=== PATIENT | female | born 1990 | race Caucasian/White ===

== ENCOUNTER 2024-01-19 17:54 | Emergency (ER) | payer BC ==
--- NOTE | 2024-01-19 18:11 | ED ---
Female Urogenital HPI - General Chief complaint: Vaginal Bleeding Stated complaint: 12wks preg/heavy vaginal bleeding Time Seen by Provider: 01/19/24 18:01 Source: patient Mode of arrival: ambulatory Limitations: no limitations - History of Present Illness Initial comments: 32-year-old female currently 12 weeks G2, with history of hypertension presenting with chief complaint of vaginal bleeding. States that this afternoon she noticed some sudden onset heavy vaginal bleeding. She was also having some cramping. They came her to the hospital. She reports now that the cramping has resolved but she feels she is still bleeding. No flank pain. No fever. Patient does report that she was seen at a previous [facility] office, states that she had a bad experience there and has an appointment scheduled with [facility] in February. She did have a previous ultrasound done at this other [facility] office. - Related Data Allergies Allergy/AdvReac Type Severity Reaction Status Date / Time No Known Allergies Allergy Verified 01/19/24 18:01 Review of Systems ROS Statement: Those systems with pertinent positive or pertinent negative responses have been documented in the HPI. ROS Other: All systems not noted in ROS Statement are negative. Past Medical History Past Medical History: Hypertension History of Any Multi-Drug Resistant Organisms: None Reported Past Surgical History: Uterine Ablation Past Psychological History: No Psychological Hx Reported Smoking Status: Never smoker Past Alcohol Use History: None Reported Past Drug Use History: None Reported General Exam Limitations: no limitations General appearance: alert, in no apparent distress Head exam: Present: atraumatic, normocephalic, normal inspection Eye exam: Present: normal appearance, EOMI Neck exam: Present: normal inspection. Absent: meningismus Respiratory exam: Absent: respiratory distress Cardiovascular Exam: Present: tachycardia GI/Abdominal exam: Present: soft. Absent: distended, tenderness, guarding, rebound, rigid External exam: Present: normal external exam Speculum exam: Present: vaginal bleeding (scant) Neurological exam: Present: alert, oriented X3 Psychiatric exam: Present: anxious Skin exam: Present: warm, dry Course Vital Signs 01/19/24 01/19/24 01/19/24 17:56 19:04 21:00 Temperature 98.5 F Pulse Rate 110 H 122 H 96 Respiratory 18 18 18 Rate Blood Pressure 171/119 179/111 149/100 O2 Sat by Pulse 99 99 98 Oximetry 01/19/24 22:29 Temperature 98.0 F Pulse Rate 92 Respiratory 16 Rate Blood Pressure 147/97 O2 Sat by Pulse 98 Oximetry Medical Decision Making - Medical Decision Making Was pt. sent in by a medical professional or institution ([facility]ley, EXHIBITIONS CURATOR, urgent care, hospital, or [facility]...) When possible be specific @ -No Did you speak to anyone other than the patient for history (EMS, parent, family, police, friend...)? What history was obtained from this source @ -No Did you review nursing and triage notes (agree or disagree)? Why? @ -I reviewed and agree with nursing and triage notes Were old charts reviewed (outside hosp., previous admission, EMS record, old EKG, old radiological studies, urgent care reports/EKG's, [facility] records)? Report findings @ -No old charts were reviewed Differential Diagnosis (chest pain, altered mental status, abdominal pain women, abdominal pain men, vaginal bleeding, weakness, fever, dyspnea, syncope, headache, dizziness, GI bleed, back pain, seizure, CVA, palpatations, mental health, musculoskeletal)? @ -MDM Differential Vaginal Bleeding: Spontaneous , threatened , molar , ectopic , bloody show, incompetent cervix, abruptioplacenta, placenta previa, uterine rupture, dysfunctional uterine bleeding, hemorrhage, uterine fibr oids. ... This is not meant to be an all-inclusive list EKG interpreted by me (3pts min.). @ -As above X-rays interpreted by me (1pt min.). @ -None done CT interpreted by me (1pt min.). @ -None done U/S interpreted by me (1pt. min.). @ -Ultrasound shows single intrauterine gestation estimated 8 weeks 6 days gestation based on current ultrasound measurements. Cardiac activity measures 172 bpm. Large thickened uterus. Consider fibroid or gestational trophoblastic disease What testing was considered but not performed or refused? (CT, X-rays, U/S, labs)? Why? @ -None What meds were considered but not given or refused? Why? @ -None Did you discuss the management of the patient with other professionals (professionals i.e. JO[facility] ANTONIO Manley, EXHIBITIONS CURATOR, lab, RT, psych nurse, social service director, certified anesthesiologist assistant, teacher, earth science technical officer, family independence case manager)? Give summary @ -I spoke with Dr. Goodman regarding the patient's ultrasound findings. Given that the patient has a live IUP she cannot also have gestational troph oblastic disease. Patient will follow-up with him at her upcoming appointment at the beginning of February, will report back to ER with any new or worsening symptoms Was smoking cessation discussed for >3mins.? @ -No Was critical care preformed (if so, how long)? @ -No Were there social determinants of health that impacted care today? How? (Homelessness, low income, unemployed, alcoholism, drug addiction, transportation, low edu. Level, literacy, decrease access to med. care, mcc, rehab)? @ -No Was there de-escalation of care discussed even if they declined (Discuss DNR or withdrawal of care, Hospice)? DNR status @ -No What co-morbidities impacted this encounter? (DM, HTN, Smoking, COPD, CAD, Cancer, CVA, ARF, Chemo, Hep., AIDS, mental health diagnosis, sleep apnea, morbid obesity)? @ -None Was patient admitted / discharged? Hospital course, mention meds given and route, prescriptions, significant lab abnormalities, going to OR and other pertinent info. @ -33-year-old female currently about 11 weeks presenting with chief complaint of vaginal bleeding and cramping that started earlier today. Patient is hypertensive, history of hypertension, not currently on her metoprolol as it was making her feel sick. WBC 12.3, may be reactive secondary to . Patient O+, no need for RhoGAM. Ultrasound shows single live IUP. There is also a large thickened uterus. hCG 71,959.8. Discussed with [facility] on-call Dr. Goodman, gestational trophoblastic disease not compatible with her ultrasound findings of a live IUP. Patient will follow-up with him at her appointment scheduled for early February. Patient was given labetalol for her blood pressure, BP improved to 147/97. No headache blurry vision or upper abdominal pain. Patient is educated on today's findings and treatment plan. Follow-up with [facility]. Follow-up with PCP. Report back to ER with any new or worsening symptoms. Discussed return parameters and answered all questions. Patient conveyed verbal understanding and agreed to the plan. I discussed this case in detail with my attending Dr. Kumar Undiagnosed new problem with uncertain prognosis? @ -No Drug Therapy requiring intensive monitoring for toxicity (Heparin, Nitro, Insulin, Cardizem)? @ -No Were any procedures done? @ -No Diagnosis/symptom? @ -Threatened Acute, or Chronic, or Acute on Chronic? @ -Acute Uncomplicated (without systemic symptoms) or Complicated (systemic symptoms)? @ -Uncomplicated Side effects of treatment? @ -No Exacerbation, Progression, or Severe Exacerbation? @ -No Poses a threat to life or bodily function? How? (Chest pain, [place], [place], pneumonia, PE, COPD, DKA, ARF, appy, cholecystitis, CVA, Diverticulitis, Homicidal, Suicidal, threat to staff... and all critical care pts) @ -No immediate threat at this time - Lab Data Result diagrams: 01/19/24 19:24 01/19/24 19:24 Lab Results 01/19/24 01/19/24 01/19/24 Range/Units 19:12 19:24 19:24 WBC 12.3 H (3.8-10.6) k/uL RBC 4.80 (3.80-5.40) m/uL Hgb 13.9 (11.4-16.0) gm/dL Hct 40.9 (34.0-46.0) % MCV 85.2 (80.0-100.0) fL MCH 28.9 (25.0-35.0) pg MCHC 33.9 (31.0-37.0) g/dL RDW 13.3 (11.5-15.5) % Plt Count 297 (150-450) k/uL MPV 7.5 Neutrophils % 71 % Lymphocytes % 22 % Monocytes % 5 % Eosinophils % 1 % Basophils % 1 % Neutrophils # 8.7 H (1.3-7.7) k/uL Lymphocytes # 2.7 (1.0-4.8) k/uL Monocytes # 0.6 (0-1.0) k/uL Eosinophils # 0.1 (0-0.7) k/uL Basophils # 0.1 (0-0.2) k/uL PT 10.1 (10.0-12.5) sec INR 0.9 (<1.2) APTT 24.1 (22.0-30.0) sec Sodium (137-145) mmol/L Potassium (3.5-5.1) mmol/L Chloride (98-107) mmol/L Carbon Dioxide (22-30) mmol/L Anion Gap mmol/L BUN (7-17) mg/dL Creatinine (0.52-1.04) mg/dL Est GFR (CKD-EPI)AfAm (>60 ml/min/1.73 sqM) Est GFR (CKD-EPI)NonAf (>60 ml/min/1.73 sqM) Glucose (74-99) mg/dL Calcium (8.4-10.2) mg/dL Total Bilirubin (0.2-1.3) mg/dL AST (14-36) U/L ALT (4-34) U/L Alkaline Phosphatase (38-126) U/L Total Protein (6.3-8.2) g/dL Albumin (3.5-5.0) g/dL HCG, Quant mIU/mL Blood Type O Positive Blood Type Recheck No Previous Record Bld Type Recheck Status [facility] ONLY 01/19/24 Range/Units 19:24 WBC (3.8-10.6) k/uL RBC (3.80-5.40) m/uL Hgb (11.4-16.0) gm/dL Hct (34.0-46.0) % MCV (80.0-100.0) fL MCH (25.0-35.0) pg MCHC (31.0-37.0) g/dL RDW (11.5-15.5) % Plt Count (150-450) k/uL MPV Neutrophils % % Lymphocytes % % Monocytes % % Eosinophils % % Basophils % % Neutrophils # (1.3-7.7) k/uL Lymphocytes # (1.0-4.8) k/uL Monocytes # (0-1.0) k/uL Eosinophils # (0-0.7) k/uL Basophils # (0-0.2) k/uL PT (10.0-12.5) sec INR (<1.2) APTT (22.0-30.0) sec Sodium 135 L (137-145) mmol/L Potassium 4.1 (3.5-5.1) mmol/L Chloride 108 H (98-107) mmol/L Carbon Dioxide 16 L (22-30) mmol/L Anion Gap 11 mmol/L BUN 13 (7-17) mg/dL Creatinine 0.63 (0.52-1.04) mg/dL Est GFR (CKD-EPI)AfAm >90 (>60 ml/min/1.73 sqM) Est GFR (CKD-EPI)NonAf >90 (>60 ml/min/1.73 sqM) Glucose 96 (74-99) mg/dL Calcium 9.4 (8.4-10.2) mg/dL Total Bilirubin 0.5 (0.2-1.3) mg/dL AST 23 (14-36) U/L ALT 23 (4-34) U/L Alkaline Phosphatase 70 (38-126) U/L Total Protein 7.3 (6.3-8.2) g/dL Albumin 4.6 (3.5-5.0) g/dL HCG, Quant 42738.8 mIU/mL Blood Type Blood Type Recheck Bld Type Recheck Status Disposition Clinical Impression: Threatened Disposition: HOME SELF-CARE Condition: Good Instructions (If sedation given, give patient instructions): Threatened Miscarriage (ED) Additional Instructions: Follow-up with your [facility]. Report back to ER with any new or worsening symptoms, including but not limited to worsening bleeding or pain. Is patient prescribed a controlled substance at d/c from ED?: No Referrals: None,Stated [Primary Care Provider] - 1-2 days Kishan Goodman MD [STAFF PHYSICIAN] - 1-2 days Time of Disposition: 22:18
[2024-01-19] MEDS: SODIUM CHLORIDE 0.9% 1,000 ML IV ONE (19:15)
--- NOTE | 2024-01-19 19:30 | US ---
EXAMINATION TYPE: Transabdominal DATE OF EXAM: 01/19/2024 7:08 PM COMPARISON: NONE CLINICAL INDICATION: Female, 33 years old with history of pain; bleed x 1 hr, scanned on 01/01 at of fice measuring "8-9 weeks" per pt. TECHNIQUE: Transvaginal (TV) and Transabdominal (TA) with grayscale and color Doppler imaging includi ng first trimester . FINDINGS: EXAM MEASUREMENTS: GESTATIONAL AGE / DATING Physician Established: Not yet established Dates by LMP: unsure of LMP (11 weeks/1 days) EDC: 08/08/24 Dates by First Scan: outside scan Dates by Current Scan for: (8 weeks/6 days) EDC: 08/24/24 MATERNAL ANATOMY Uterus: 8.3x5.0x7.9 Right Ovary: 3.6x3.3x2.8cm Left Ovary: obscured Post CDS / Adnexa: wnl Presence of free fluid: no Presence of corpus luteal cyst: no Presence of subchorionic bleed: no GESTATION / SURVEY CRL: 2.1 (8 weeks/6 days) Gestational Sac morphology: Normal Yolk Sac (normal less than 6mm): wnl Heart Rate: 172 bpm Rhythm: Normal IUP: Viable IUP Date of LMP: ?11/02/23 Beta HcG (if available): Not available at this time There is a large 4.5x3.4x4.0cm hyperechoic heterogenous area at the left uterus . Consider Gestationa l trophoblastic disease. Differential could include a fibroid Ultrasound limited by retroverted uterine position IMPRESSION: 1. Single intrauterine gestation estimated at 8 weeks 6 days gestation based on current ultrasound me asurements. Cardiac activity measures 172 bpm. 2. Large thickened uterus. Consider fibroid or gestational trophoblastic disease. [facility], , 01/19/2024 7:27 PM
[2024-01-19 19:38] LABS: Basophils # (A) 0.1 k/uL (0-0.2); Basophils % (A) 1 %; Eosinophils # (A) 0.1 k/uL (0-0.7); Eosinophils % (A) 1 %; HCT 40.9 % (34.0-46.0); HGB 13.9 gm/dL (11.4-16.0); Lymphocytes # (A) 2.7 k/uL (1.0-4.8); Lymphocytes % (A) 22 %; MCH 28.9 pg (25.0-35.0); MCHC 33.9 g/dL (31.0-37.0); MCV 85.2 fL (80.0-100.0); Mean Platelet Volume 7.5; Monocytes # (A) 0.6 k/uL (0-1.0); Monocytes % (A) 5 %; Neutrophils # (A) 8.7 k/uL (1.3-7.7); Neutrophils % (A) 71 %; Platelet Count 297 k/uL (150-450); RDW 13.3 % (11.5-15.5); WBC 12.3 k/uL (3.8-10.6)
[2024-01-19 19:49] LABS: ALT 23 U/L (4-34); AST 23 U/L (14-36); African American GFR (CKD) >90 (>60 ml/min/1.73 sqM); Albumin 4.6 g/dL (3.5-5.0); Alkaline Phosphatase 70 U/L (38-126); Anion Gap 11 mmol/L; Blood Urea Nitrogen 13 mg/dL (7-17); Calcium 9.4 mg/dL (8.4-10.2); Carbon Dioxide 16 mmol/L (22-30); Chloride 108 mmol/L (98-107); Glucose 96 mg/dL (74-99); Non-African American GFR(CKD) >90 (>60 ml/min/1.73 sqM); Potassium 4.1 mmol/L (3.5-5.1); Sodium 135 mmol/L (137-145); Total Bilirubin 0.5 mg/dL (0.2-1.3); Total Protein 7.3 g/dL (6.3-8.2)
[2024-01-19] MEDS: diphenhydrAMINE 50 MG/ML 1 ML VIAL IVP STA (20:07)
[2024-01-19 20:12] LABS: INR 0.9 (<1.2); Partial Thromboplastin Time 24.1 sec (22.0-30.0); Prothrombin Time 10.1 sec (10.0-12.5)
[2024-01-19 20:32] LABS: HCG,Quantitative Serum 71959.8 mIU/mL
[2024-01-19] MEDS: LABETALOL 5 MG/ML VIAL MDV IVP STA (20:48)
[2024-01-19 22:31] VITALS: BP 147/97; PULSE 92; RESP 16; TEMP 98
== END 2024-01-19 22:34 | disposition home or self-care (01) ==
LOC: EC 17:54
DX: O20.0 Threatened abortion (principal); Z3A.12 12 weeks gestation of pregnancy
CPT/HCPCS: 99285; 96374 ×2; 96361 ×2; 36415; 93005; 86900; 86901; 80053; 85025; 85610; 85730; 84702; 76801; 76817; 99284; J1920

== ENCOUNTER → 2024-02-11 | Outpatient (CLI) | payer BC | END | disposition home or self-care (01) | LOC: LABPAT 15:53 | PROVIDERS: ATTEND Obstetrics & Gynecology | DX: Z01.818 Encounter for other preprocedural examination (principal) | CPT/HCPCS: 86850; 86900; 86901 ==

== ENCOUNTER 2024-02-13 06:12 | Day surgery (SDC) | payer BC ==
[2024-02-11 10:14] VITALS: BMI 41.5
[~2024-02-13 06:12] MED LIST: Pre Op ABX Message 1 EACH MISC MISCELLANE ONE
[2024-02-13] MEDS: IV FLUID CONTINUATION 1,000 ML IV ONE (06:47)
[2024-02-13] MEDS: LACTATED RINGERS 1,000 ML IV SCH (06:47)
[2024-02-13] MEDS: MIDAZOLAM 2 MG/2 ML VIAL IV ONE (06:48)
[2024-02-13] MEDS: DEXAMETHASONE SOD PHOSPHATE 4 MG/ML 1 ML VIAL IV ONE (06:49)
[2024-02-13] MEDS: ONDANSETRON 4 MG/2 ML VIAL IVP ONE (06:49)
[2024-02-13] MEDS ORDERED: HYDROmorphone 0.5 MG/0.5 ML SYRINGE IVP PRN (07:00)
[2024-02-13] MEDS ORDERED: LIDOCAINE 1% INJ 10MG/ML (20 ML MDV) ONE (07:22)
[2024-02-13] MEDS ORDERED: PROPOFOL 10 MG/ML 20 ML VIAL IV ONE (07:22)
[2024-02-13] MEDS ORDERED: fentaNYL (PF) 50 MCG/ML 2 ML AMP ONE (07:22)
[2024-02-13] MEDS ORDERED: KETOROLAC 15 MG/ML 1 ML VIAL ONE (07:22)
[2024-02-13] MEDS ORDERED: SIMETHICONE 80 MG CHEWABLE PO PRN (07:57)
[2024-02-13] MEDS ORDERED: KETOROLAC 15 MG/ML 1 ML VIAL IVP PRN (07:57)
[2024-02-13] MEDS ORDERED: diphenhydrAMINE 25 MG CAP PO PRN (07:57)
[2024-02-13] MEDS ORDERED: diphenhydrAMINE 50 MG/ML 1 ML VIAL IVP PRN (07:57)
[2024-02-13] MEDS ORDERED: IBUPROFEN 600 MG TAB PO PRN (07:57)
[2024-02-13] MEDS ORDERED: METOCLOPRAMIDE 5 MG/ML 2 ML VIAL IVP PRN (07:57)
[2024-02-13] MEDS ORDERED: ONDANSETRON 4 MG/2 ML VIAL IVP PRN (07:57)
[2024-02-13] MEDS ORDERED: ACETAMINOPHEN TAB 325 MG TAB PO PRN (07:57)
[2024-02-13] MEDS ORDERED: LACTATED RINGERS 1,000 ML IV SCH (08:00)
[2024-02-13 08:04] VITALS: TEMP 98.4
--- NOTE | 2024-02-13 08:04 | P.OP ---
Date of Procedure: 02/13/24 Preoperative Diagnosis: #1. 8+ week missed #2. Bicornuate uterus Postoperative Diagnosis: Same Procedure(s) Performed: #1. Dilation and aspiration curettage Anesthesia: other (General By LMA) Surgeon: Kishan Goodman Estimated Blood Loss (ml): 100 IV fluids (ml): 300 Urine output (ml): 30 Pathology: other (Endometrial contents) Condition: stable Disposition: PACU Operative Findings: Preoperative pelvic examination demonstrated the uterus to be very high and posterior the pelvis. It was otherwise approximately 8 weeks in size, midplane, mobile, normal in shape. The adnexa were nonpalpable and without apparent ma sses bilaterally. Intraoperatively, the uterus sounded to approximately 10 to 11 cm. #8 curved aspiration curette was utilized and tissue was clearly seen passing through the tubing on the first 3 or 4 passes after which time no further tissue was noted. Using a sharp curette, the typical gritty texture was encountered throughout and no further tissue was produced. I was unable to appreciate the bicornuate nature of the uterus with the sharp curette. Description of Procedure: The patient was prepped and draped in usual fashion after general anesthesia was administered by the anesthesiologist. A weighted speculum was placed and the bladder drained of approximately 30 cc of clear [place] urine. The anterior lip of the cervix was grasped with a single-tooth tenaculum with some difficulty as it was extraordinarily posterior and high. The weighted speculum was replaced with a right angle retractor allowing for better visualization. The uterus was sounded to approximately 10 to 11 cm as noted above. Serial dilation was carried out to admit a #8 curved aspiration curette which was placed to the fundus of the uterus and suction applied. After adequate suction had been built, thorough and circumferential aspiration curettage was carried out from the fundus to the cervix with tissue clearly seen passing through the tubing. 2-3 more passes continued to produce tissue after which time no further tissue was noted. On the last pass with no tissue was noted, the aspiration curette was set aside in favor of a medium sharp curette which was utilized to th oroughly and circumferentially curette the endometrial cavity and its contents into the vagina. The typical gritty texture was encountered throughout and I was unable to appreciate the bicornuate nature of the uterus. Will 1 last pass was made with the aspiration curette at which time no further tissue was noted. The uterus was appreciably smaller at the end of the procedure. Estimated blood loss for the case was approximately 100 mL. There were no complications. All sponge, instrument, and needle counts were correct. The patient tolerated the procedure well and proceeded to the recovery room in stable condition.
[2024-02-13 08:45] VITALS: RESP 16
[2024-02-13] MEDS: hydrALAZINE HCL 20 MG/ML 1 ML VIAL IVP STA (09:11)
[2024-02-13 09:37] VITALS: BP 146/91; PULSE 89
== END 2024-02-13 09:39 | disposition home or self-care (01) ==
LOC: OR 06:12
PROVIDERS: ATTEND Obstetrics & Gynecology
DX: O02.1 Missed abortion (principal); Q51.3 Bicornate uterus; I10 Essential (primary) hypertension; K21.9 Gastro-esophageal reflux disease without esophagitis
CPT/HCPCS: 59820; J2250; J0360; J1100; J2405; J2003; J3010; J1885; J2704